=== PATIENT | male | born 1985 | race Caucasian/White ===

== ENCOUNTER → 2019-08-01 | Outpatient (REF) | payer MEDICAID ==
[~2019-08-01] MED LIST: BUSP10TA PO; CELE20TA PO; RISP4TAB33 PO; TRAZ50TA2 PO; VARE1TA PO; no home meds
[2019-08-01 13:25] LABS: BASO # 0.1 10^3/uL (0.0-0.2); BASO % 1.2 % (0.0-1.0); EOS # 0.6 10^3/uL (0.0-0.5); EOS % 7.8 % (0.0-3.0); HEMOGLOBIN 15.9 g/dl (13.5-17.5); LYMPH # 3.2 10^3/uL (1.5-5.0); LYMPH % 43.9 % (24.0-44.0); MEAN CORPUSCULAR HEMOGLOBIN 31.2 pg (27.0-33.0); MEAN CORPUSCULAR HGB CONC 33.8 g/dl (32.0-36.5); MEAN CORPUSCULAR VOLUME 92.3 fl (80.0-96.0); MONO # 0.7 10^3/uL (0.0-0.8); MONO % 9.6 % (0.0-5.0); NEUTROPHILS # 2.7 10^3/uL (1.5-8.5); NEUTROPHILS % 37.2 % (36.0-66.0); PLATELET COUNT, AUTOMATED 244 10^3/uL (150-450); RED BLOOD COUNT 5.09 10^6/uL (4.30-6.10); WHITE BLOOD COUNT 7.2 10^3/uL (4.0-10.0)
[2019-08-01 13:47] LABS: HEMOGLOBIN A1c 5.3 %
[2019-08-01 13:53] LABS: ALBUMIN 4.2 GM/DL (3.2-5.2); ALT/SGPT 30 U/L (12-78); BILIRUBIN,TOTAL 0.4 MG/DL (0.2-1.0); BLOOD UREA NITROGEN 11 MG/DL (7-18); CALCIUM LEVEL 9.4 MG/DL (8.5-10.1); CARBON DIOXIDE LEVEL 29 MEQ/L (21-32); CHLORIDE LEVEL 106 MEQ/L (98-107); CHOLESTEROL LEVEL 153 MG/DL (<200); CHOLESTEROL RISK RATIO 2.593 (<5); CREATININE FOR GFR 0.89 MG/DL (0.70-1.30); FREE T4 0.93 NG/DL (0.76-1.46); GLOMERULAR FILTRATION RATE > 60.0 (>60); GLUCOSE, FASTING 94 MG/DL (70-100); HDL CHOLESTEROL 59 MG/DL (>40); LDL CHOLESTEROL 81 MG/DL (<100); NON-HDL-C 94 MG/DL; SODIUM LEVEL 140 MEQ/L (136-145); TOTAL 25(OH) VITAMIN D 26.8 NG/ML (30.0-100.0); TRIGLYCERIDES LEVEL 64 MG/DL (<150)
== END ==
LOC: M LAB REF 12:52
PROVIDERS: ATTEND Nurse Practitioner Family
DX: Z00.01 Encounter for general adult medical examination with abnormal findings (principal)

== ENCOUNTER → 2019-08-04 | Outpatient (CLI) | payer MEDICAID, OTHER ==
--- NOTE | 2019-08-04 09:54 | REP ---
SCROTAL ULTRASOUND: Real-time sonographic evaluation of the scrotum and contents performed. The testicles are normal in size and echotexture, right testicle measuring 5.2 x 2.7 x 3.6 cm and left testicle 5.5. X 2.6 x 3.5 cm. There is a cyst in the head of the left epididymis measuring 4 mm in diameter. In the right scrotal wall laterally, hypoechoic nodule measures 1.8 x 1.0 x 1.8 cm demonstrating internal heterogeneous echogenicity. IMPRESSION: Normal testicles. Subcentimeter cyst head of left epididymis. Heterogeneous hypoechoic nodule in the right scrotal wall laterally may represent a complex cyst or solid nodule. Electronically Signed by Scooter Clark MD 08/05/2019 05:27 P
== END ==
LOC: M RAD 06:33
PROVIDERS: ATTEND Nurse Practitioner Family
DX: N50.9 Disorder of male genital organs, unspecified (principal); L72.3 Sebaceous cyst

== ENCOUNTER → 2020-04-29 | Outpatient (CLI) | payer OTHER ==
--- NOTE | 2020-04-29 10:37 | REPPI ---
REASON: Pain. FINDINGS: The hip joint space is symmetric and relatively well maintained. There is no acute or destructive osseous lesion. Electronically Signed by Harvey Soler DO 04/29/2020 11:28 A
--- NOTE | 2020-04-29 10:39 | REPPI ---
REASON: Back pain. Seven views were obtained to include flexion and extension bending views. COMPARISON: 01/13/2013 Vertebral body height and alignment is within normal limits. Flexion and extension bending views show no instability. There is mild disc space narrowing status quo. There is anterior lipping which has increased slightly particularly L3 and L4. Small marginal osteophytes on the right at L3-4 status quo. The pedicles are intact bilaterally. There is no spondylolysis or spondylolisthesis. IMPRESSION: Chronic changes as described above. Electronically Signed by Harvey Soler DO 04/29/2020 11:28 A
== END ==
LOC: M PLAIMG 09:14
PROVIDERS: ATTEND Physician Assistant
DX: M25.552 Pain in left hip (principal); M25.78 Osteophyte, vertebrae

== ENCOUNTER 2022-01-18 22:32 | Emergency (ER) | payer OTHER ==
[~2022-01-18] VITALS: Ht 170.2 cm; Wt 67.7 kg
[2022-01-19 02:13] LABS: BASO # 0.1 10^3/uL (0.0-0.2); BASO % 0.3 % (0.0-1.0); EOS % 0.1 % (0.0-3.0); HEMATOCRIT 41.6 % (42.0-52.0); HEMOGLOBIN 14.4 g/dl (13.5-17.5); LYMPH # 1.3 10^3/uL (1.5-5.0); LYMPH % 8.8 % (24.0-44.0); MEAN CORPUSCULAR HEMOGLOBIN 31.2 pg (27.0-33.0); MEAN CORPUSCULAR HGB CONC 34.6 g/dl (32.0-36.5); MONO # 0.9 10^3/uL (0.0-0.8); MONO % 5.9 % (2.0-8.0); NEUTROPHILS # 12.2 10^3/uL (1.5-8.5); NEUTROPHILS % 84.6 % (36.0-66.0); PLATELET COUNT, AUTOMATED 216 10^3/uL (150-450); RED BLOOD COUNT 4.62 10^6/uL (4.30-6.10); WHITE BLOOD COUNT 14.5 10^3/uL (4.0-10.0)
[2022-01-19 02:47] LABS: BLOOD UREA NITROGEN 13 MG/DL (7-18); CALCIUM LEVEL 9.3 MG/DL (8.5-10.1); CARBON DIOXIDE LEVEL 28 MEQ/L (21-32); CHLORIDE LEVEL 106 MEQ/L (98-107); CREATININE FOR GFR 0.94 MG/DL (0.70-1.30); FREE T3 3.2 PG/ML (2.2-4.0); GLOMERULAR FILTRATION RATE > 60.0 (>60); GLUCOSE, FASTING 106 MG/DL (70-100); MAGNESIUM LEVEL 1.9 MG/DL (1.8-2.4); POTASSIUM SERUM 4.1 MEQ/L (3.5-5.1); SODIUM LEVEL 137 MEQ/L (136-145)
[2022-01-19 04:00] VITALS: BP 110/53
== END 2022-01-19 04:06 | disposition home or self-care (01) ==
LOC: M ED 22:32
DX: R55 Syncope and collapse (principal); F14.11 Cocaine abuse, in remission; Z88.0 Allergy status to penicillin; Z88.8 Allergy status to other drugs, medicaments and biological substances; F17.210 Nicotine dependence, cigarettes, uncomplicated; F12.20 Cannabis dependence, uncomplicated

== ENCOUNTER 2022-04-29 00:36 | Emergency (ER) | payer OTHER ==
[~2022-04-29] VITALS: Ht 170.2 cm; Wt 72.7 kg
[2022-04-29 01:35] LABS: RSV AMPLIFICATION NEGATIVE (NEGATIVE)
[2022-04-29 04:15] VITALS: BP 107/51
== END 2022-04-29 05:33 | disposition left against medical advice (07) ==
LOC: M ED 00:36
DX: Z53.29 Procedure and treatment not carried out because of patient's decision for other reasons (principal)

== ENCOUNTER 2023-06-03 01:20 | Emergency (ER) | payer OTHER ==
[~2023-06-03] VITALS: Ht 170.2 cm; Wt 70.6 kg
[2023-06-03 01:21] VITALS: BP 144/79; TEMP 98.2; O2SAT 97
[2023-06-03] MEDS ORDERED: MOXI1TAB PO (03:04)
[2023-06-03] MEDS ORDERED: MOXIFLOXACIN 400 MG TAB PO ONE (03:05)
[2023-06-03] MEDS ORDERED: BOOSTRIX VACCINE (TETANUS/DIPHTH/ACEL. PERTUSSIS) 0.5ML SYR IM ONE (03:05)
== END 2023-06-03 03:25 | disposition home or self-care (01) ==
LOC: M ED 01:20
DX: L03.113 Cellulitis of right upper limb (principal); S61.431A Puncture wound without foreign body of right hand, initial encounter; W55.01XA Bitten by cat, initial encounter; Y92.009 Unspecified place in unspecified non-institutional (private) residence as the place of occurrence of the external cause; Y93.89 Activity, other specified; Y99.8 Other external cause status; Z88.0 Allergy status to penicillin; J45.909 Unspecified asthma, uncomplicated; Z79.899 Other long term (current) drug therapy

== ENCOUNTER → 2024-06-05 | Outpatient (CLI) | payer OTHER ==
[~2024-06-05] MED LIST changes: +MOXI1TAB PO
== END ==
LOC: M RAD 14:54
PROVIDERS: ATTEND Family Medicine Addiction Medicine
DX: M54.50 Low back pain, unspecified (principal)

== ENCOUNTER → 2025-01-09 | Outpatient (REF) | payer MEDICAID ==
[2025-01-09 13:31] LABS: SEMEN APPEARANCE OPAQUE (OPAQUE); SEMEN VISCOSITY LIQUID (LIQUID); SEMEN VOLUME 2.4 ml (2.0-5.0); SPERM CONCENTRATION 38.6 M/ml (>=15.0); WBC CONCENTRATION <=1 M/ml (<=1 M/ml)
[2025-01-09 13:32] LABS: TOTAL PROGRESSIVE SPERM 32.2 M/Ejac.
== END ==
LOC: M LAB REF 13:19
PROVIDERS: ATTEND Obstetrics & Gynecology Obstetrics
DX: N46.9 Male infertility, unspecified (principal)